=== PATIENT | female | born 1990 | race African-American/Black ===

== ENCOUNTER → 2018-01-11 | Outpatient (CLI) | payer BC | LOC: COL.LAB 11:41 | DX: E03.9 Hypothyroidism, unspecified (principal) ==

== ENCOUNTER → 2018-08-02 | Outpatient (CLI) | payer BC | LOC: COL.LAB 11:51 | DX: Z11.3 Encounter for screening for infections with a predominantly sexual mode of transmission (principal); L29.8 Other pruritus ==

== ENCOUNTER → 2019-09-27 | Outpatient (CLI) | payer BC, MEDICAID ==
[2019-09-27 18:02] LABS: BASO % 0.3 % (0.0-2.0); EOS # 0.1 (0.0-0.7); EOS % 1.8 % (0-4.0); GRAN # 3.5 (1.4-6.5); GRAN % 44.9 % (42.2-75.2); HEMATOCRIT 39.3 % (37.0-47.0); HEMOGLOBIN 12.5 g/dl (12.5-16.0); LYMPH # 3.4 (1.2-3.4); LYMPH % 44.2 % (20.0-51.0); MEAN CELL VOLUME 87 fl (80.0-100.0); MEAN CORPUSCULAR HEMOGLOBIN 28 pg (27.0-31.0); MEAN CORPUSCULAR HGB CONC 32 g/dl (33.0-37.0); MEAN PLATELET VOLUME 12.3 fl (7.4-10.4); MONO # 0.7 (0.1-0.6); MONO % 8.5 % (1.7-9.3); PLATELET COUNT 248 K/mm3 (130-400); RED BLOOD COUNT 4.53 M/mm3 (4.10-5.30); REDCELL DISTRIBUTION WIDTH-CV 14.2 % (11.5-14.5)
[2019-09-27 18:31] LABS: ALBUMIN 3.8 gm/dL (3.5-5.0); BILIRUBIN,TOTAL 0.6 mg/dL (0.0-1.0); CALCIUM 9.2 mg/dL (8.4-10.2); CREATININE, serum 0.72 (0.52-1.25); POTASSIUM 4.2 mmol/L (3.4-5.0); TOTAL PROTEIN 6.8 gm/dL (6.4-8.2)
[2019-09-27 19:00] LABS: TSH w REFLEX 0.537 uIU/mL (0.465-4.680)
[2019-09-28 22:39] LABS: HIV ANTIGEN-ANTIBODY COMBO-AMS Negative (Negative)
== END ==
LOC: ZCOL.LAB 17:37
PROVIDERS: Family Medicine
DX: Z13.1 Encounter for screening for diabetes mellitus (principal); Z11.4 Encounter for screening for human immunodeficiency virus [HIV]; Z11.3 Encounter for screening for infections with a predominantly sexual mode of transmission; R53.83 Other fatigue; N89.8 Other specified noninflammatory disorders of vagina

== ENCOUNTER 2020-08-24 22:02 | Inpatient (IN) | payer MEDICAID ==
[~2020-08-24] VITALS: Ht 170.2 cm; Wt 165.0 kg
[2020-08-24] MEDS ORDERED: GLUCOPHAGE500 MG/TAB PO (22:17)
[2020-08-24] MEDS ORDERED: ELIQUIS 5MG PO (22:17)
[2020-08-24] MEDS ORDERED: LEXAPRO20 MG PO (22:17)
[2020-08-24] MEDS ORDERED: FLAGYL500 MG PO (22:18)
[2020-08-24] MEDS ORDERED: PRIL40 PO (22:18)
[2020-08-24] MEDS ORDERED: D3-5050000 IU PO (22:18)
[2020-08-24 22:53] LABS: BASO % 0.3 % (0.0-2.0); EOS # 0.1 (0.0-0.7); EOS % 0.9 % (0-4.0); GRAN # 5.6 (1.4-6.5); GRAN % 58.1 % (42.2-75.2); HEMATOCRIT 36.7 % (37.0-47.0); HEMOGLOBIN 11.7 g/dl (12.5-16.0); LYMPH # 3.1 (1.2-3.4); LYMPH % 31.8 % (20.0-51.0); MEAN CELL VOLUME 85 fl (80.0-100.0); MEAN CORPUSCULAR HEMOGLOBIN 27 pg (27.0-31.0); MEAN CORPUSCULAR HGB CONC 32 g/dl (33.0-37.0); MEAN PLATELET VOLUME 11.6 fl (7.4-10.4); MONO # 0.8 (0.1-0.6); MONO % 8.7 % (1.7-9.3); PLATELET COUNT 245 K/mm3 (130-400); REDCELL DISTRIBUTION WIDTH-CV 14.1 % (11.5-14.5)
[2020-08-24] MEDS ORDERED: ZOFRAN 4MG T4 MG/TAB PO ×2 (23:05)
[2020-08-24] MEDS ORDERED: CARAFATE 1GM1 G PO (23:05)
[2020-08-24 23:26] LABS: ALBUMIN 3.8 gm/dL (3.5-5.0); BILIRUBIN,TOTAL 0.3 mg/dL (0.0-1.0); CALCIUM 8.3 mg/dL (8.4-10.2); CREATININE, serum 0.68 (0.52-1.25); POTASSIUM 3.9 mmol/L (3.4-5.0)
--- NOTE | 2020-08-25 02:02 | NUR ---
RECEIVED REPORT FROM ER NURSEGIL. AWAITING PATIENT ARRIVAL TO ROOM 342.
[2020-08-25 02:16] VITALS: BP 152/76; PULSE 98; TEMP 98.3
--- NOTE | 2020-08-25 02:43 | NUR ---
PATIENT ADMITTED TO ROOM 342 VIA W/C WITH ER STAFF ACCOMPANYING PATIENT. IV SITE TO RAC PATENT WITH IVF INFUSING WITH NO PROBLES.
--- NOTE | 2020-08-25 03:11 | NUR ---
PATIENT C/O RECURRENCE OF ABD PAIN FROM 07/07 TO 09/06. DR JONES CALLED, INFORMED OF PATIENT'S C/O. ORDERS GIVEN AND ENTERED BY STAFF. PATIENT ALSO C/O OF NAUSEA. SEE eMAR FOR MEDS GIVEN.
--- NOTE | 2020-08-25 03:41 | NUR ---
REPORTS ZOFRAN HELPED WITH NAUSEA, OBSERVED PATIENT RESTING WITH EYES CLOSED AT THIS TIME. IVF INFUSING PER PATENT RAC IV SITE. DENIES ANY OTHER NEEDS.
[2020-08-25 04:00] VITALS: BP 126/60; PULSE 71; TEMP 98
[2020-08-25 07:07] LABS: BASO % 0.1 % (0.0-2.0); EOS # 0.1 (0.0-0.7); EOS % 0.7 % (0-4.0); GRAN % 61.7 % (42.2-75.2); HEMOGLOBIN 11.1 g/dl (12.5-16.0); LYMPH # 2.3 (1.2-3.4); LYMPH % 28.4 % (20.0-51.0); MEAN CELL VOLUME 86 fl (80.0-100.0); MEAN CORPUSCULAR HEMOGLOBIN 27 pg (27.0-31.0); MEAN CORPUSCULAR HGB CONC 32 g/dl (33.0-37.0); MEAN PLATELET VOLUME 11.6 fl (7.4-10.4); MONO # 0.7 (0.1-0.6); MONO % 8.7 % (1.7-9.3); PLATELET COUNT 237 K/mm3 (130-400); RED BLOOD COUNT 4.09 M/mm3 (4.10-5.30); REDCELL DISTRIBUTION WIDTH-CV 14.2 % (11.5-14.5)
--- NOTE | 2020-08-25 07:16 | NUR ---
CHANGE OF SHIFT REPORT GIVEN TO DAY SHIFT NURSEALEXANDRE. IVF INFUSING WITH NO PROBLEMS.
[2020-08-25 07:22] LABS: ALBUMIN 3.5 gm/dL (3.5-5.0); BILIRUBIN,TOTAL 0.4 mg/dL (0.0-1.0); CALCIUM 8.1 mg/dL (8.4-10.2); CREATININE, serum 0.66 (0.52-1.25); POTASSIUM 3.7 mmol/L (3.4-5.0); TOTAL PROTEIN 6.6 gm/dL (6.4-8.2)
[2020-08-25 07:23] VITALS: BP 136/55; PULSE 72; TEMP 98.3
--- NOTE | 2020-08-25 08:00 | NUR ---
PATIENT IS A&O. VSS. C/O ABD PAIN RATED 5/10. GAVE PRN ROXICODONE PER ORDERS. PATIENT REPORTS SHE WAS HAVING ABD PAIN ASSOCIATED WITH EATING. PATIENT IS NPO. NOTED ELEVATE LIPASE. IV FLUIDS INFUSING VIA PUMP INTO RIGHT AC IV. HEAD TO TOE ASSESSMENT COMPLETE.
[2020-08-25 11:24] VITALS: BP 154/79; PULSE 68; TEMP 98.2
--- NOTE | 2020-08-25 12:00 | NUR ---
HOSPITALIST TEAM ROUNDING.
--- NOTE | 2020-08-25 12:45 | NUR ---
Initial visit; Keeley thanked [employer] for looking in on her and offering comfort and prayer. [employer] will follow up while Keeley is our patient.
--- NOTE | 2020-08-25 14:15 | NUR ---
Director [employer] met with patient to discuss discharge planning. Patient lives in [place] with her two children ages 15 and 4. Patient states her mother, Kd (ph#[phone]) is at home with the children at this time. Patient sees LORAINE Coelho at [place] for primary care and obtains medications from [facility] in [place] with no difficulties. Patient does not use any DME and reports independence with ADLS. Patient does not have DPOA-HC established but is interested in completing the form. SW assisted patient in completing the form and patient chose to designate her mother, Kd and her brother, Eric as DPOA-HC. Patient verbalized understanding and provided signature. SW and MAMTA Cordova provided witness signature. SW provided original and copies to patient then placed copy on chart. SW will continue to follow as needed.
[2020-08-25 15:47] VITALS: BP 139/68; PULSE 66; TEMP 97.9
[2020-08-25 19:35] VITALS: BP 147/72; PULSE 73; TEMP 98.2
[2020-08-26 00:48] VITALS: BP 149/61; PULSE 80; TEMP 98.3
[2020-08-26 04:09] VITALS: BP 136/55; PULSE 72; TEMP 98.1
--- NOTE | 2020-08-26 05:10 | NUR ---
Patient has rested well throughout the night. Noted to have 2 malay ice and a couple hours later had an increase in pain. PRN Roxycodone 5mg given and patient stated this helped a little, but the pain was still pretty intense. LORAINE Tilley, notified of pain increase and ordered a one time dose of 5mg Roxycodone. This was noted to be effective as patient was asleep on reassessment. Patient states this pain is not any worse than her previous pain and does not feel like this is a new or different pain. Patient is independent with ambulation to the restroom. IVF are INTd this shift. INT to right AC flushes with ease. Will continue to monitor patient.
--- NOTE | 2020-08-26 07:07 | NUR ---
Patient called and stated she was having a lot of pain and was nauseous. PRN Zofran and PRN morphine given. States PRN Zofran given and slightly affective. Patient has stopped vomiting, but states she still feels a little "queazy". Continues to rate pain at 9/10. Reported off to MAG Bartlett.
--- NOTE | 2020-08-26 07:17 | NUR ---
Lying in bed with eyes open. Alert and oriented x3. Rates pain in left abd 9/10, describes as sharp. Was offered pain medication but patient wants to hold off at this time. Patient says that her nausea has decreased since getting medication. Was hoping to leave today she she is suppose to be en route to [place] but understands that we need to figure out what is going on and get it under control before she is able to leave. Patient would like to get up to shower here in a little bit. Denies any additional needs at this time.
[2020-08-26 07:26] VITALS: BP 143/72; PULSE 83; TEMP 97.9
[2020-08-26 07:44] LABS: BASO % 0.1 % (0.0-2.0); EOS # 0.1 (0.0-0.7); EOS % 0.7 % (0-4.0); GRAN # 4.1 (1.4-6.5); GRAN % 57.7 % (42.2-75.2); HEMOGLOBIN 11.3 g/dl (12.5-16.0); LYMPH # 2.3 (1.2-3.4); LYMPH % 32.3 % (20.0-51.0); MEAN CELL VOLUME 86 fl (80.0-100.0); MEAN CORPUSCULAR HEMOGLOBIN 27 pg (27.0-31.0); MEAN CORPUSCULAR HGB CONC 31 g/dl (33.0-37.0); MEAN PLATELET VOLUME 11.8 fl (7.4-10.4); MONO # 0.6 (0.1-0.6); MONO % 8.9 % (1.7-9.3); PLATELET COUNT 225 K/mm3 (130-400); RED BLOOD COUNT 4.18 M/mm3 (4.10-5.30)
[2020-08-26 07:49] LABS: CALCIUM 7.9 mg/dL (8.4-10.2); CREATININE, serum 0.73 (0.52-1.25); POTASSIUM 3.5 mmol/L (3.4-5.0)
[2020-08-26 07:50] LABS: HEMATOCRIT 36.1 % (37.0-47.0)
--- NOTE | 2020-08-26 08:42 | NUR ---
Rates pain 8/10 in abd. Administer Roxicodone as prescribed. per patient request. Patient resting in bed on left side. Denies additional needs at this time
--- NOTE | 2020-08-26 09:51 | NUR ---
Resting in bed in supine position. Rates pain 6/10 in abd at this time, feels the pain medication has helped. Provided fresh ice water. Room temperature turned down per patient request. Patient denies any additional needs at this time.
--- NOTE | 2020-08-26 10:39 | NUR ---
Follow-up visit; Patient thanked Therapeutic [employer]age Technician for stopping and keeping her in [employer]'s prayers.
[2020-08-26 11:31] VITALS: BP 135/78; PULSE 64; TEMP 97.7
--- NOTE | 2020-08-26 13:20 | NUR ---
Rating pain 7/10 n left abd and would like pain medication. Administer Roxicodone and Tylenol as prescribed. Patient resting in bed. Denies additional needs at this time.
--- NOTE | 2020-08-26 14:13 | NUR ---
Lying in bed on left side with eyes closed. Eyes open when enter room. Pain decreased to 4/10. Patient will call when US is done to get Miralax. Denies additional needs at this time.
--- NOTE | 2020-08-26 15:49 | NUR ---
Lying in bed on right side talking on cell phone. Pain 4/10 in abd and feels like the pain medication is working well at this time. Still waiting on ultrasound to come in and once they are done she will contact this nurse for the Miralax. Denies any additional needs at this time.
[2020-08-26 16:29] VITALS: BP 131/74; PULSE 67; TEMP 98
--- NOTE | 2020-08-26 16:44 | NUR ---
Sitting up in bed. Asks when she is going to get the ultrasound done because she is hungry and wants to eat. Explain that I will recall them to see a time and let her know. Patient says ultrasound done or not she plans on leaving tomorrow. Call US and Jorge A says that she will be up in about 5 minutes to perform US. Patient informed. Verbalizes understanding and denies additional needs at this time.
--- NOTE | 2020-08-26 17:29 | NUR ---
Pain increases with eating. Rates pain 6/10 at this time, administer roxicodone as prescribed. Patient sitting up in bed talking on phone. Denies additional needs.
[2020-08-26 21:19] VITALS: BP 148/52; PULSE 76; TEMP 98.2
[2020-08-27 00:16] VITALS: BP 135/72; PULSE 65; TEMP 98
[2020-08-27 04:07] VITALS: BP 168/68; PULSE 71; TEMP 98.7
--- NOTE | 2020-08-27 04:26 | NUR ---
Patient currently taking roxycodone and tylenol for pain throughout the night. States this is effective, however she feels she is constipated. PRN Miralax given this morning along with a glass of warm tea. Patient educated on purchasing a stool softner when she is discharged to help with opioid induced constipation. Tolerating full liquids well. Minimal nausea this shift. Patient requests education on a low cholestrol/low fat diet. Information packet provided for patient. Patient ambulates independently to the restroom. No devices needed. Will await results from Miralax. Will continue to monitor patient.
[2020-08-27 07:10] LABS: BASO % 0.1 % (0.0-2.0); EOS % 0.4 % (0-4.0); GRAN # 4.3 (1.4-6.5); GRAN % 57.5 % (42.2-75.2); HEMATOCRIT 37.1 % (37.0-47.0); HEMOGLOBIN 11.8 g/dl (12.5-16.0); LYMPH # 2.5 (1.2-3.4); LYMPH % 33.8 % (20.0-51.0); MEAN CELL VOLUME 86 fl (80.0-100.0); MEAN CORPUSCULAR HEMOGLOBIN 27 pg (27.0-31.0); MEAN CORPUSCULAR HGB CONC 32 g/dl (33.0-37.0); MEAN PLATELET VOLUME 11.2 fl (7.4-10.4); MONO # 0.6 (0.1-0.6); MONO % 8.1 % (1.7-9.3); PLATELET COUNT 246 K/mm3 (130-400)
[2020-08-27 07:39] LABS: ALBUMIN 3.9 gm/dL (3.5-5.0); BILIRUBIN,TOTAL 0.3 mg/dL (0.0-1.0); CALCIUM 8.5 mg/dL (8.4-10.2); CREATININE, serum 0.71 (0.52-1.25); POTASSIUM 3.7 mmol/L (3.4-5.0); TOTAL PROTEIN 7.2 gm/dL (6.4-8.2)
[2020-08-27 07:43] VITALS: BP 141/72; PULSE 72; TEMP 98
[2020-08-27] MEDS ORDERED: MIRALAX510G PO (09:02)
[2020-08-27] MEDS ORDERED: ROXICODONE 55 MG/TAB PO (09:03)
[2020-08-27] MEDS ORDERED: ZOFRAN 4MG T4 MG/TAB PO (09:27)
--- NOTE | 2020-08-27 10:25 | NUR ---
Lining Finisher attended clinical rounds with the team and patient to discharge today. Patient to follow up with her primary care physician, Rachel Bledsoe within a week. No additional needs at this time.
--- NOTE | 2020-08-27 10:53 | NUR ---
Patient ready for dischage. Orders received from hospitalist. We reviewed all discharge teaching. We discussed diet restrictions & follow up appt appt. Yoly tolerated breakfast without nausea. Int Dc. Patient taking herself home.
== END 2020-08-27 10:57 | disposition home or self-care (01) | DRG 439 ==
LOC: COL.ER 22:02 → SURG 23:35
PROVIDERS: Emergency Medicine; Physician Assistant; ADMIT Student in an Organized Health Care Education/Training Program
DX: K85.90 Acute pancreatitis without necrosis or infection, unspecified (principal); Z68.43 Body mass index [BMI] 50.0-59.9, adult; K25.9 Gastric ulcer, unspecified as acute or chronic, without hemorrhage or perforation; E66.01 Morbid (severe) obesity due to excess calories; Z86.718 Personal history of other venous thrombosis and embolism; F32.9 Major depressive disorder, single episode, unspecified; Z90.49 Acquired absence of other specified parts of digestive tract; Z79.84 Long term (current) use of oral hypoglycemic drugs
CPT/HCPCS: 99222-AI; 99231-AI; 99239; C9113; J2270; J2405; J2765; J7030; Q9967